=== PATIENT | female | born 1990 | race Caucasian/White ===

== ENCOUNTER 2016-09-11 07:51 | Day surgery (SDC) | payer OTHER ==
[2016-09-06 10:31] VITALS: BMI 26.6
[2016-09-11] MEDS ORDERED: LIDOCAINE HCL/PF 2% SDV 5ML VIAL ONE (08:01)
[2016-09-11] MEDS ORDERED: PROPOFOL 20 ML ONE (08:01)
[2016-09-11 10:48] VITALS: BP 121/65; PULSE 74; TEMP 97.6
--- NOTE | 2016-09-13 11:19 | PATH ---
Surgical Pathology Report Patient Name: BRENNA MUNGUIA [facility]. Rec. #: [id number] /Age/Gender: 1990 (Age: 25) / F Account: [id number] Location: [facility] AMBUL[facility]ORY Taken: 09/11/2016 Received: 09/11/2016 Reported: 09/13/2016 Physicians: Abdullahi Johnson M.D. Specimen(s) Received A: DUODENUM B: ANTRUM Clinical History GERD Gastritis, gastric erosions (prepyloric) Final Diagnosis A. DUODENUM, BIOPSY: DUODENAL MUCOSA WITH NO PATHOLOGIC CHANGES. NO HISTOLOGIC EVIDENCE OF GLUTEN SENSITIVE ENTEROPATHY (CELIAC SPRUE) IDENTIFIED. B. STOMACH, ANTRUM, BIOPSY: FOCAL MILD CHRONIC GASTRITIS. IMMUNOSTAIN FOR H. PYLORI IS NEGATIVE. Electronically Signed Antoine Tamez M.D. Gross Description A. Received in formalin, labeled "duodenum" is a lorenz, irregular portion of soft tissue measuring 0.6 cm. in greatest dimension. The specimen is submitted in toto in one cassette. B. Received in formalin, labeled "antrum" are 2 lorenz, irregular portions of soft tissue measuring 0.5 and 0.7 cm. in greatest dimension. The specimens are submitted in toto in one cassette. 09/12/2016 saudi09/12/2016
== END 2016-09-11 10:54 | disposition home or self-care (01) ==
LOC: FASU 07:51
PROVIDERS: ATTEND Internal Medicine Gastroenterology
PROC: 0DB68ZX Excision of Stomach, Via Natural or Artificial Opening Endoscopic, Diagnostic (ICD-10-PCS; 2016-09-11)
PROC: 0DB98ZX Excision of Duodenum, Via Natural or Artificial Opening Endoscopic, Diagnostic (ICD-10-PCS; principal; 2016-09-11 10:01)
PROC: 0DB78ZX Excision of Stomach, Pylorus, Via Natural or Artificial Opening Endoscopic, Diagnostic (ICD-10-PCS; 2016-09-11 10:01)
DX: K29.50 Unspecified chronic gastritis without bleeding (principal); K25.9 Gastric ulcer, unspecified as acute or chronic, without hemorrhage or perforation; Z98.84 Bariatric surgery status; K20.8 Other esophagitis
CPT/HCPCS: 84703; 88305-TC; 88342-TC